=== PATIENT | female | born 1980 | race Caucasian/White ===

== ENCOUNTER 2021-06-10 12:26 | Emergency (ER) | payer MEDICAID, MEDICARE ==
[~2021-06-10] VITALS: Ht 172 cm; Wt 87.0 kg
[~2021-06-10 12:26] MED LIST: ACHD5005 PO; DCS100C PO; ENXP30I.3 SC; FRS325T PO; IBP800T; Ibuprofen PO; NITR100C3 PO; PERCOCET; PROP1TAB77; SMT80CT PO; WRF1T; WRF5T
--- NOTE | 2021-06-10 12:43 | ED General ---
General Stated Complaint: LEFT EYE SWOLLEN Source of Information: Patient Exam Limitations: No Limitations (LOUIE VALENZUELA APRN) History of Present Illness Date Seen by Provider: Jun 10, 2021 Time Seen by Provider: 12:41 Initial Comments To ER with reports of left-sided facial swelling. This began on 06/08/2021. She initially had some pus come out of a lesion that she squeezed just lateral to the left side of her nose. She then had increasing redness. No fevers. She saw [facility] and is on cephalexin and mupirocin ointment without improvement as of yet. Timing/Duration: 1-2 Days Severity: Moderate Associated Systoms: Denies Symptoms (LOUIE VALENZUELA APRN) Allergies and Home Medications Allergies Coded Allergies: No Known Drug Allergies (Verified Allergy, Unknown, 09/11/07) Patient Home Medication List Home Medication List Reviewed: Yes (LOUIE VALENZUELA APRN) Docusate Sodium (Colace) 100 Mg Cap, 100 MG PO BID PRN for CONSTIPATION Prescribed by: ZAINA RUGGIERO on 02/08/14 0959 Doxycycline Hyclate (Doxycycline Hyclate) 100 Mg Tablet, 100 MG PO BID Prescribed by: LOUIE VALENZUELA on 06/10/21 1333 Enoxaparin (Lovenox) 30 Mg/0.3 Ml Soln, 30 MG SC Q12H Prescribed by: ZAINA RUGGIERO on 02/08/14 0959 Ferrous Sulfate (Feosol Tab) 325 Mg Tab, 325 MG PO DAILY@0700 Prescribed by: ZAINA RUGGIERO on 02/08/14 0959 Hydrocodone Bit/Acetaminophen (Lortab 5 Mg Tablet) 1 Tab Tab, 1-2 TAB PO Q4H PRN for pain Prescribed by: ZANIA RUGGIERO on 02/08/14 0959 Nitrofurantoin/Nitrofuran Mac (Macrobid Capsule) 100 Mg Capsule, 100 MG PO BID Prescribed by: ZAINA RUGGIERO on 02/08/14 0959 Simethicone (Mylicon Chews) 80 Mg Chew, 80 MG PO Q2HR PRN for gas Prescribed by: ZAINA RUGGIERO on 02/08/14 0959 [Ibuprofen] 600 MG TAB, 600 MG PO Q6H PRN for PAIN Prescribed by: ZAINA RUGGIERO on 02/08/14 0959 Review of Systems Review of Systems Constitutional: see HPI EENTM: see HPI Respiratory: no symptoms reported Cardiovascular: no symptoms reported Genitourinary: no symptoms reported Musculoskeletal: no symptoms reported Skin: no symptoms reported Psychiatric/Neurological: No Symptoms Reported Hematologic/Lymphatic: No Symptoms Reported Immunological/Allergic: no symptoms reported (LOUIE VALENZUELA APRN) Past Btcxmrc-Zltldu-Cfqtaj Hx Immunizations Up To Date Tetanus Booster (TDap): Unknown PED Vaccines UTD: No (LOUIE VALENZUELA APRN) Past Medical History Pulmonary Embolism Reproductive Disorders: Yes Sexually Transmitted Disease: No Adverse Reaction/Blood Tranf: No (LOUIE VALENZUELA APRN) Family Medical History Family history: Diabetes mellitus MATERNAL GRANDMOTHER Family history: Hypertension MATERNAL GRANDMOTHER Heart disease MATERNAL GRANDMOTHER Stroke MATERNAL GRANDMOTHER Physical Exam Vital Signs Vital Signs - First Documented 06/10/21 12:35 Temp 36.1 Pulse 108 Resp 20 B/P (MAP) 152/99 (116) Pulse Ox 99 (FOREST FELIX MD) Vital Signs Capillary Refill : (LOUIE VALENZUELA APRN) Height, Weight, BMI Height: 175'175.26" Weight: 179lbs. oz. 81.752681sp; BMI Method: General Appearance: No Apparent Distress, WD/WN Eyes: Bilateral Eye Normal Inspection, Bilateral Eye PERRL, Bilateral Eye EOMI HEENT: PERRL/EOMI, TMs Normal, Other (There is some left infraorbital cellulitis. Appears to be a pustule just lateral to the left side of the nose.) Neck: Full Range of Motion, Normal Inspection Respiratory: No Accessory Muscle Use, No Respiratory Distress Gastrointestinal: Non Tender, Soft Neurologic/Psychiatric: Alert, Oriented x3 Skin: Normal Color, Warm/Dry (LOUIE VALENZUELA APRN) Procedures/Interventions I&D : Blade Size: 11 Progress 1330-Incision was made just lateral to the nose after anesthetizing the area with 0.5 mL of 1% lidocaine with epinephrine. Incision was made with an 11 blade scalpel very small. A moderate amount of purulent material was expressed. Culture collected and sent to lab. I will change her cephalexin to doxycycline and she was given clindamycin IV here. (LOUIE VALENZUELA APRN) Progress/Results/Core Measures Suspected Sepsis SIRS Temperature: Pulse: Respiratory Rate: Laboratory Tests 06/10/21 12:40: White Blood Count 14.6H Blood Pressure / Mean: Laboratory Tests 06/10/21 12:40: Creatinine 0.72, Platelet Count 342 (LOUIE VALENZUELA APRN) Results/Orders Lab Results Laboratory Tests Test 06/10/21 12:40 Range/Units White Blood Count 14.6 H 4.3-11.0 10^3/uL Red Blood Count 4.57 3.80-5.11 10^6/uL Hemoglobin 14.4 11.5-16.0 g/dL Hematocrit 43 35-52 % Mean Corpuscular Volume 93 80-99 fL Mean Corpuscular Hemoglobin 32 25-34 pg Mean Corpuscular Hemoglobin Concent 34 32-36 g/dL Red Cell Distribution Width 13.3 10.0-14.5 % Platelet Count 342 130-400 10^3/uL Mean Platelet Volume 9.8 9.0-12.2 fL Immature Granulocyte % (Auto) 0 % Neutrophils (%) (Auto) 64 42-75 % Lymphocytes (%) (Auto) 30 12-44 % Monocytes (%) (Auto) 5 0-12 % Eosinophils (%) (Auto) 1 0-10 % Basophils (%) (Auto) 0 0-10 % Neutrophils # (Auto) 9.3 H 1.8-7.8 X 10^3 Lymphocytes # (Auto) 4.3 H 1.0-4.0 X 10^3 Monocytes # (Auto) 0.8 0.0-1.0 X 10^3 Eosinophils # (Auto) 0.2 0.0-0.3 10^3/uL Basophils # (Auto) 0.0 0.0-0.1 10^3/uL Immature Granulocyte # (Auto) 0.0 0.0-0.1 10^3/uL Neutrophils % (Manual) 62 % Lymphocytes % (Manual) 30 % Monocytes % (Manual) 7 % Eosinophils % (Manual) 1 % Blood Morphology Comment NORMAL Sodium Level 141 135-145 MMOL/L Potassium Level 3.1 L 3.6-5.0 MMOL/L Chloride Level 106 98-107 MMOL/L Carbon Dioxide Level 22 21-32 MMOL/L Anion Gap 13 5-14 MMOL/L Blood Urea Nitrogen 6 L 7-18 MG/DL Creatinine 0.72 0.60-1.30 MG/DL Estimat Glomerular Filtration Rate 89 BUN/Creatinine Ratio 8 Glucose Level 98 70-105 MG/DL Calcium Level 8.9 8.5-10.1 MG/DL C-Reactive Protein High Sensitivity 4.44 H 0.00-0.50 MG/DL (FOREST FELIX MD) Medications Given in ED Current Medications Medications Dose Ordered Sig/Roxanne Route Start Time Stop Time Status Last Admin Dose Admin Acetaminophen/ Hydrocodone Bitart 1 ea ONCE ONCE PO 06/10/21 14:00 06/10/21 14:01 DC 06/10/21 14:08 1 EA Clindamycin Phosphate/Dextrose 50 ml @ 100 mls/hr ONCE ONCE IV 06/10/21 12:45 06/10/21 13:14 DC 06/10/21 12:58 100 MLS/HR Fentanyl Citrate 50 mcg ONCE ONCE IVP 06/10/21 12:45 06/10/21 12:46 DC 06/10/21 12:57 50 MCG Iohexol 75 ml ONCE ONCE IV 06/10/21 13:00 06/10/21 13:01 DC 06/10/21 13:14 75 ML Sodium Chloride 10 ml NEEDED PRN IV 06/10/21 13:00 06/10/21 14:10 DC 06/10/21 13:15 10 ML Sodium Chloride 100 ml ONCE ONCE IV 06/10/21 13:00 06/10/21 13:01 DC 06/10/21 13:15 80 ML (FOREST FELIX MD) Vital Signs/I&O 06/10/21 06/10/21 12:35 14:10 Temp 36.1 Pulse 108 88 Resp 20 20 B/P (MAP) 152/99 (116) 136/88 Pulse Ox 99 99 (FOREST FELIX MD) Vital Signs/I&O Capillary Refill : (LOUIE VALENZUELA APRN) Diagnostic Imaging Diagonstic Imaging: CT Comments NAME: SAMUEL VAUGHN [facility] REC#: [id number] PT STATUS: REG ER : 1980 PHYSICIAN: LUOIE VALENZUELA APRN ADMIT DATE: 06/10/21/ER Draft Date of Exam:06/10/21 CT MAXILLOFACIAL W PROCEDURE: CT maxillofacial with contrast. TECHNIQUE: After intravenous administration of contrast, axial images were obtained through the face and reformatted into coronal and sagittal planes. Auto Exposure Controls were utilized during the CT exam to meet ALARA standards for radiation dose reduction. INDICATION: Left preseptal cellulitis, pain, swelling COMPARISON: None available. FINDINGS: No intracranial midline shift, uncal herniation, or hydrocephalus. Fat stranding is identified within the left periorbital region, particularly inferiorly. This is seen extending over the left cheek region. A 0.6 x 0.4 cm round hypodensity is identified within the subcutaneous tissues extending to the skin surface overlying the medial aspect of the left maxillary sinus within the region of inflammatory changes. These inflammatory changes extend to overlie the mandible on the left. The parapharyngeal fat is symmetric and well-maintained. Minimal thickening of the left platysma. Mildly asymmetrically prominent lymph nodes along the left cervical chain. The muscles of mastication are unremarkable. The visualized salivary glands are unremarkable. The globes are unremarkable. The retro-bulbar fat is unremarkable. Mild mucosal thickening within the right greater than left ethmoid air cells. The paranasal sinuses are otherwise essentially clear. The patient is partially edentulous. Underlying periodontal disease is present. Additionally, several small periapical lucencies are present without definite osseous destruction. No acute fracture. Mild degenerative changes within the partially visualized cervical spine. IMPRESSION: Subcutaneous inflammatory stranding associated with the left periorbital region extending to overlie the left mandible. Findings are felt to relate to preseptal cellulitis. No evidence of post septal cellulitis. Tiny intradermal and subcutaneous hypodensity measuring 5 mm within the left premaxillary region is concerning for a tiny subcutaneous abscess at this location. Mild prominence of the left-sided cervical lymph nodes, likely reactive in nature. The patient is partially edentulous with associated underlying periodontal disease and multiple periapical lucencies. Dictated on workstation # [id number] Dict: 06/10/21 1335 Trans: 06/10/21 1347 [facility] [id number] Interpreted by: MICHEAL MAGANA MD Electronically signed by: (LOUIE VALENZUELA APRN) Departure Impression Primary Impression: Cellulitis and abscess of face Disposition: 01 HOME, SELF-CARE Condition: Stable Departure-Patient Inst. Decision time for Depature: 13:30 (LOUIE VALENZUELA APRN) Referrals: ZAINA RUGGIERO DO (PCP/Family) Primary Care Physician Patient Instructions: Cellulitis (Skin Infection), Adult (DC) Add. Discharge Instructions: 1. Warm compresses to the area. Stop the cephalexin and change to the new antibiotic called doxycycline. Pain medication as directed. Return to ER for any concerns. Follow-up with your doctor next week for recheck. We did give you fentanyl and hydrocodone, an opiate, in the emergency room. Scripts Doxycycline Hyclate (Doxycycline Hyclate) 100 Mg Tablet 100 MG PO BID, #20 TAB 0 Refills . Prov: LOUIE VALENZUELA APRN 06/10/21 ATTENDING PHYSICIAN NOTE: I was physically present as attending physician in the emergency department during the care of this patient, but I was not directly involved in the decision making or delivery of care for this patient. (FOREST FELIX MD) LOUIE VALENZUELA APRN Jun 10, 2021 12:43 FOREST FELIX MD Jun 10, 2021 19:02
[2021-06-10] MEDS ORDERED: CLINDAMYCIN 900 MG/50 ML IVPB 50 ML IV ONE (12:45)
[2021-06-10] MEDS ORDERED: fentaNYL INJ 100 MCG/2 ML AMP IVP ONE (12:45)
[2021-06-10 12:56] LABS: BASOPHILS % (AUTO) 0 % (0-10); EOSINOPHILS # (AUTO) 0.2 10^3/uL (0.0-0.3); EOSINOPHILS % (AUTO) 1 % (0-10); HEMATOCRIT 43 % (35-52); HEMOGLOBIN 14.4 g/dL (11.5-16.0); LYMPHOCYTES # (AUTO) 4.3 X 10^3 (1.0-4.0); LYMPHOCYTES % (AUTO) 30 % (12-44); MEAN CORPUSCULAR HEMOGLOBIN 32 pg (25-34); MEAN CORPUSCULAR HGB CONC 34 g/dL (32-36); MEAN CORPUSCULAR VOLUME 93 fL (80-99); MEAN PLATELET VOLUME 9.8 fL (9.0-12.2); MONOCYTES # (AUTO) 0.8 X 10^3 (0.0-1.0); MONOCYTES % (AUTO) 5 % (0-12); NEUTROPHILS # (AUTO) 9.3 X 10^3 (1.8-7.8); NEUTROPHILS % (AUTO) 64 % (42-75); PLATELET COUNT 342 10^3/uL (130-400); WHITE BLOOD COUNT 14.6 10^3/uL (4.3-11.0)
[2021-06-10] MEDS ORDERED: IOHEXOL 350 MG/ML 100 ML (OMNIPAQUE 350) VIAL IV ONE (13:00)
[2021-06-10] MEDS ORDERED: HOLD METFORMIN - RECEIVED CONTRAST 20 ML VIAL IV SCH (13:00)
[2021-06-10] MEDS ORDERED: NS 100 ML (IVPB) BAG IV ONE (13:00)
[2021-06-10] MEDS ORDERED: CATHETER FLUSH 10 ML SYR IV PRN (13:00)
[2021-06-10 13:09] LABS: POTASSIUM 3.1 MMOL/L (3.6-5.0)
[2021-06-10 13:10] LABS: CALCIUM 8.9 MG/DL (8.5-10.1)
[2021-06-10 13:15] LABS: CREATININE SERUM 0.72 MG/DL (0.60-1.30)
[2021-06-10 13:19] LABS: EOSINOPHILS % (MANUAL) 1 %; LYMPHOCYTES % (MANUAL) 30 %; MONOCYTES % (MANUAL) 7 %; NEUTROPHILS % (MANUAL) 62 %; RBC MORPH NORMAL
[2021-06-10] MEDS ORDERED: DOXY100T2 PO ×2 (13:31→13:33)
--- NOTE | 2021-06-10 13:48 | Diagnostic Imaging Report ---
PROCEDURE: CT maxillofacial with contrast. TECHNIQUE: After intravenous administration of contrast, axial images were obtained through the face and reformatted into coronal and sagittal planes. Auto Exposure Controls were utilized during the CT exam to meet ALARA standards for radiation dose reduction. INDICATION: Left preseptal cellulitis, pain, swelling COMPARISON: None available. FINDINGS: No intracranial midline shift, uncal herniation, or hydrocephalus. Fat stranding is identified within the left periorbital region, particularly inferiorly. This is seen extending over the left cheek region. A 0.6 x 0.4 cm round hypodensity is identified within the subcutaneous tissues extending to the skin surface overlying the medial aspect of the left maxillary sinus within the region of inflammatory changes. These inflammatory changes extend to overlie the mandible on the left. The parapharyngeal fat is symmetric and well-maintained. Minimal thickening of the left platysma. Mildly asymmetrically prominent lymph nodes along the left cervical chain. The muscles of mastication are unremarkable. The visualized salivary glands are unremarkable. The globes are unremarkable. The retro-bulbar fat is unremarkable. Mild mucosal thickening within the right greater than left ethmoid air cells. The paranasal sinuses are otherwise essentially clear. The patient is partially edentulous. Underlying periodontal disease is present. Additionally, several small periapical lucencies are present without definite osseous destruction. No acute fracture. Mild degenerative changes within the partially visualized cervical spine. IMPRESSION: Subcutaneous inflammatory stranding associated with the left periorbital region extending to overlie the left mandible. Findings are felt to relate to preseptal cellulitis. No evidence of post septal cellulitis. Tiny intradermal and subcutaneous hypodensity measuring 5 mm within the left premaxillary region is concerning for a tiny subcutaneous abscess at this location. Mild prominence of the left-sided cervical lymph nodes, likely reactive in nature. The patient is partially edentulous with associated underlying periodontal disease and multiple periapical lucencies. Dictated by: Dictated on workstation # [id number]
[2021-06-10] MEDS ORDERED: HYDROcodone/APAP 5 MG/325 MG (LORTAB) TAB PO ONE (14:00)
[2021-06-10] MEDS ORDERED: DOXYCYCLINE 100 MG (VIBRAMYCIN) TABLET PO SCH (14:00)
[2021-06-10 14:10] VITALS: BP 136/88
== END 2021-06-10 14:10 | disposition home or self-care (01) ==
LOC: EDUNIT# 12:26 → ER 12:29
DX: L03.211 Cellulitis of face (principal); L02.01 Cutaneous abscess of face; Z86.711 Personal history of pulmonary embolism; Z79.01 Long term (current) use of anticoagulants
CPT/HCPCS: 10060; 36415; 70487; 80048; 85007; 85027; 86141; 87070; 87205